=== PATIENT | female | born 1950 | race Caucasian/White ===

== ENCOUNTER → 2016-10-11 | Outpatient (CLI) | payer MEDICARE, OTHER ==
[~2016-10-11] VITALS: Ht 160 cm; Wt 96.8 kg
[~2016-10-11] MED LIST: ATACAND32 MG PO; CALCIUM CITRAT950 MG PO; CALCIUM CITRATE1 TA1 PO; DITROPAN 5MG TAB5 MG PO; FASTIN30 MG PO; LUTEIN20 M1 PO; NATURAL E400 IU PO; PHENTERMINE15 MG; PHENTERMINE15 MG PO; PROBIOTICA100 MILLIO PO; PROBIOTICA100 Milli1 PO; SLO-NIACIN500 MG PO; VITAMIN B COMPL1 SGL PO; VITAMIN C500 MG PO; VITAMINE200 PO; ZOCOR 40MG40 MG PO
[2016-10-11 11:07] VITALS: BP 117/57; PULSE 66
[2016-10-11 11:27] VITALS: BP 117/57; PULSE 66
[2016-11-05 09:19] VITALS: BP 143/70; PULSE 75
== END ==
LOC: LIGHT 11:05
DX: E88.81 Metabolic syndrome and other insulin resistance (principal); E78.4 Other hyperlipidemia; E66.09 Other obesity due to excess calories; Z68.38 Body mass index [BMI] 38.0-38.9, adult; I10 Essential (primary) hypertension

== ENCOUNTER → 2016-11-29 | Outpatient (CLI) | payer MEDICARE, OTHER ==
[~2016-11-29] VITALS: Ht 160 cm; Wt 95.7 kg
[2016-11-29 10:59] VITALS: BP 118/62; PULSE 64
== END ==
LOC: LIGHT 10:50
DX: E88.81 Metabolic syndrome and other insulin resistance (principal); I10 Essential (primary) hypertension; E78.4 Other hyperlipidemia; E66.01 Morbid (severe) obesity due to excess calories; Z68.37 Body mass index [BMI] 37.0-37.9, adult

== ENCOUNTER → 2017-01-10 | Outpatient (CLI) | payer MEDICARE, OTHER ==
[~2017-01-10] VITALS: Ht 160 cm; Wt 92.8 kg
[2017-01-10 12:57] VITALS: BP 138/80; PULSE 60
[2017-02-11 17:02] VITALS: BP 131/61; PULSE 606
[2017-02-25 12:44] VITALS: BP 122/59; PULSE 58
== END ==
LOC: LIGHT 12:55
DX: E88.81 Metabolic syndrome and other insulin resistance (principal); E78.4 Other hyperlipidemia; I10 Essential (primary) hypertension; E66.01 Morbid (severe) obesity due to excess calories; Z68.37 Body mass index [BMI] 37.0-37.9, adult

== ENCOUNTER → 2017-01-17 | Outpatient (CLI) | payer MEDICARE, OTHER | LOC: COL.RAD 09:26 | DX: R39.15 Urgency of urination (principal); N39.46 Mixed incontinence; N30.20 Other chronic cystitis without hematuria; R94.31 Abnormal electrocardiogram [ECG] [EKG] ==

== ENCOUNTER → 2017-03-07 | Outpatient (CLI) | payer MEDICARE, OTHER ==
[~2017-03-07] VITALS: Ht 160 cm; Wt 92.1 kg
[2017-03-07 13:10] VITALS: BP 125/68; PULSE 57
[2017-04-08 10:51] VITALS: BP 135/64; PULSE 58
== END ==
LOC: LIGHT 13:05
DX: E88.81 Metabolic syndrome and other insulin resistance (principal); E78.5 Hyperlipidemia, unspecified; E66.01 Morbid (severe) obesity due to excess calories; Z68.36 Body mass index [BMI] 36.0-36.9, adult; Z71.3 Dietary counseling and surveillance; I10 Essential (primary) hypertension

== ENCOUNTER → 2017-05-09 | Outpatient (CLI) | payer MEDICARE, OTHER ==
[~2017-05-09] VITALS: Ht 160 cm; Wt 90.7 kg
[2017-05-09 13:59] VITALS: BP 126/74; PULSE 72
[2017-05-20 11:51] VITALS: BP 122/60; PULSE 60
== END ==
LOC: LIGHT 13:57
DX: E88.81 Metabolic syndrome and other insulin resistance (principal); E78.5 Hyperlipidemia, unspecified; E66.01 Morbid (severe) obesity due to excess calories; Z68.35 Body mass index [BMI] 35.0-35.9, adult; Z71.3 Dietary counseling and surveillance; I10 Essential (primary) hypertension

== ENCOUNTER → 2017-07-11 | Outpatient (CLI) | payer MEDICARE, OTHER ==
[~2017-07-11] VITALS: Ht 160 cm; Wt 89.8 kg
[2017-07-11 14:12] VITALS: BP 120/50; PULSE 60
== END ==
LOC: LIGHT 10:57
DX: E88.81 Metabolic syndrome and other insulin resistance (principal); E78.5 Hyperlipidemia, unspecified; E66.01 Morbid (severe) obesity due to excess calories; Z68.35 Body mass index [BMI] 35.0-35.9, adult; Z71.3 Dietary counseling and surveillance; I10 Essential (primary) hypertension

== ENCOUNTER → 2017-09-12 | Outpatient (CLI) | payer MEDICARE, OTHER ==
[~2017-09-12] VITALS: Ht 160 cm; Wt 89.1 kg
[2017-09-12 15:56] VITALS: BP 134/66; PULSE 60
== END ==
LOC: LIGHT 10:38
DX: E88.81 Metabolic syndrome and other insulin resistance (principal); E78.5 Hyperlipidemia, unspecified; E66.01 Morbid (severe) obesity due to excess calories; Z71.3 Dietary counseling and surveillance; I10 Essential (primary) hypertension
CPT/HCPCS: G0463